=== PATIENT | male | born 1985 | race Asian ===

== ENCOUNTER → 2018-08-17 | Day surgery (SDC) | payer OTHER ==
[~2018-08-17] MED LIST: BUPIVACAINE HCL 0.5% INJ 30 ML VIAL INJ ONE; CEFAZOLIN SOD 1 GM VIAL ONE; DEXAMETHASONE SOD PHOS INJ 4 MG/ML VIAL ONE; FENTANYL CITRATE/PF 100MCG/2 ML INJ ONE; GLYCOPYRROLATE INJ 1MG/ 5 ML SYR ONE; HYDROMORPHONE 2MG/ML 2 MG/ML ML ONE; KETOROLAC TROMETHAMINE 30 MG/ML VIAL ONE; LIDOCAINE HCL 2% LOCAL INJ 5 ML SDV VIAL INJ ONE; MIDAZOLAM HCL 2 MG/2 ML VIAL ONE; MUPIROCIN 2% OINT 22 GM TUBE ONE; NEOSTIGMINE 5 MG/5ML SYR ONE; ONDANSETRON HCL INJ 2 MG/ML VIAL ONE; PROPOFOL IV EMULSION 10 MG/ML 20 ML VIAL ONE; ROCURONIUM BROMIDE 10 MG/ML 5ML VIAL ONE; SEVOFLURANE INHAL SOLN 250 ML PEN BTL ONE
[2018-08-17 12:05] VITALS: BP 137/82
--- NOTE | 2018-08-17 15:44 | Operative Report ---
DATE OF PROCEDURE: August 17, 2018 QUALITY ASSURANCE ASSISTANT: Jim Verdin PA-C The patient was brought to the operating room for induction of anesthesia. Throughout this case, my PA's assistance was necessary for retraction of soft tissue and positioning of the extremity. This allows for efficient and technically successful execution of the operation and is considered medically necessary. PREOPERATIVE DIAGNOSIS: Subacute right Achilles tendon rupture. POSTOPERATIVE DIAGNOSIS: Subacute right Achilles tendon rupture. PROCEDURE: Right Achilles tendon repair. INDICATIONS: The patient is a 32-year-old gentleman who ruptured his right Achilles tendon. This happened about 2 months ago. He had to put it off because he wanted to wait until after he was . We have discussed the findings and options and added risk of complications due to the delay. He states he understands and wishes to proceed. DESCRIPTION OF PROCEDURE: The patient was brought to the operating room and placed under general anesthetic. He received prophylactic antibiotics in the holding area. His right lower extremity was prepped and draped in a sterile manner. He was positioned in a floppy lateral position. The extremity was exsanguinated and a proximal tourniquet was inflated to 300 mmHg. An incision was made over the posterior medial aspect of the right ankle. This had to be extended slightly more proximally through the adhesions. The peritenon was thickened and adherent to the Achilles tendon. The proximal portion of the tendon was exposed and freed of all scar tissue. The scar tissue was debrided back to more healthy tendinous tissue. A number 2 FiberWire stitch was woven in a [place] type weave. Tension was applied while the last bit of adhesions were released. A similar Moraima type weave with number 2 Ethibond was placed into the distal portion of the tendon. The tendinous edges could easily be reapproximated with a foot plantar flexed. The sutures were secured. Additional stitches were placed into the tendon to oversew the repair. The wound was thoroughly irrigated. The paratenon was repaired with 0 Vicryl. The skin was closed with subcuticular 2-0 Vicryl and multiple interrupted nylon stitches. A sterile bandage and a plantar flexion splint was applied. The patient was extubated and transported to the recovery room in stable condition. There was no blood loss and all needle and sponge counts were correct. Approximately 4 mL of 2% lidocaine were injected into the oswald-incisional tissue at the end of the case. Job#: [id number]
== END | disposition home or self-care (01) ==
LOC: OR 06:29
PROVIDERS: ATTEND Specialist
DX: S86.011A Strain of right Achilles tendon, initial encounter (principal); X50.1XXA Overexertion from prolonged static or awkward postures, initial encounter; Y93.67 Activity, basketball; Y92.39 Other specified sports and athletic area as the place of occurrence of the external cause
CPT/HCPCS: J0690; J1100; J1885; J2001; J2250; J2405